=== PATIENT | male | born 1990 | race Caucasian/White ===

== ENCOUNTER 2022-09-22 11:14 | Emergency (ER) | payer MEDICAID ==
[~2022-09-22] VITALS: Ht 180.3 cm; Wt 136.1 kg
--- NOTE | 2022-09-22 11:45 | NUR ---
Placed in room 6 . Placed on teletypesetter monitor, blood pressure machine and pulse oximeter. To gown for exam. Side rails up. Report given to
[2022-09-22 11:46] VITALS: BP_SYST 140
--- NOTE | 2022-09-22 11:46 | NUR ---
ER at bedside examining patient.
--- NOTE | 2022-09-22 11:50 | NUR ---
PT BIB SELF AWAKE AND ALERT AOX4, NO SOB OR DISTRESS. PT C/O A CHIP PLACED IN HIS HEAD BY THE [employer]OST[employer]. PT STATES THE CHIPS MAkES HIM DO STUFF LIKE EJACULAT ON HIMSELF. PT DENIES PAIN. PT STATES THE CHIP HAS BEEN IN HIS HEAD FOR 5-6 YEARS. PT DENIES SI. PT DENIES VOICES, AND COMMMANDS. PT STATED HE WENT TO HOSPITAL IN THE PAST 2 MONTHS TO REMOVE AND DOCUMENT THE CHIP W/ POLICE.
--- NOTE | 2022-09-22 11:50 | NUR ---
MD DR WALTON AT BEDSIDE
[2022-09-22 12:17] LABS: HEMATOCRIT 47.4 % (36-54); HEMOGLOBIN 16.3 g/dL (14.0-18.0); MEAN CORPUSCULAR HEMOGLOBIN 30 pg (27-31); MEAN CORPUSCULAR HGB CONC 34 % (32-36); MEAN CORPUSCULAR VOLUME 87 fL (79.0-98.0); RED BLOOD CELL COUNT(AUTO) 5.43 MIL/uL (4.2-6.2); WHITE BLOOD COUNT (AUTO) 7.6 K/uL (4.8-10.8)
[2022-09-22 12:18] LABS: BASOPHILS % (AUTO) 0.5 % (0.0-2.0); EOSINOPHILS # (AUTO) 0.3 K/uL (0.0-0.4); EOSINOPHILS % (AUTO) 4.1 % (0.0-4.0); ERYTHROCYTE SEDIMENTATION RATE 5 MM/HR (0-15); LYMPHOCYTES # (AUTO) 1.5 K/uL (1.0-5.5); LYMPHOCYTES % (AUTO) 20.2 % (20.5-51.5); MONOCYTES # (AUTO) 0.5 K/uL (0.0-1.0); NEUTROPHILS # (AUTO) 5.3 K/uL (1.8-7.7); NEUTROPHILS % (AUTO) 69.2 % (40.0-70.0); PLATELET COUNT (AUTO) 282 K/uL (130-430); RED CELL DISTRIBUTION WIDTH 12.6 % (9.0-15.0)
[2022-09-22 12:20] LABS: ANION GAP 7 (5-15); CALCIUM 8.6 mg/dL (8.4-11.0); CHLORIDE 101 mmol/L (98-107); CREATININE 1.11 mg/dL (0.55-1.30); GFR AFRICAN AMERICAN 99 mL/min (>90); GLUCOSE 112 mg/dL (70-99); UREA NITROGEN, BLOOD 9 mg/dL (8-21)
[2022-09-22 12:25] LABS: ALANINE AMINOTRANSFERASE 30 U/L (12-78); ALBUMIN 4.1 g/dL (3.4-4.8); ASPARTATE AMINOTRANSFERASE 21 U/L (10-37); TOTAL BILIRUBIN 0.6 mg/dL (0.0-1.0)
[2022-09-22 12:27] LABS: ALCOHOL, BLOOD < 3 mg/dL (<10); C-REACTIVE PROTEIN QUANT < 0.2 mg/dL (0-0.5)
--- NOTE | 2022-09-22 13:00 | NUR ---
PT ON PHONE WITH POORNIMA PERRIN ON TELEMED IPAD.
--- NOTE | 2022-09-22 13:10 | NUR ---
POORNIMA PERRIN RECOMMEDED PT BE PLACED ON 5150 HOLD
--- NOTE | 2022-09-22 15:59 | NUR ---
[employer]I [employer]UAL TICKET CHECKER INFORMED OF 5150 STATUS AND PLAN OF CARE.
[2022-09-22 16:40] LABS: BARBITURATE, URINE NEGATIVE (NEG <=200); BENZODIAZEPINE, URINE NEGATIVE (NEG <=150); CANNABINOID, URINE NEGATIVE (NEG <=50); COCAINE, URINE NEGATIVE (NEG <=150); METHAMPHETAMINES SCREEN,URINE NEGATIVE (NEG <=500); OPIATE, URINE NEGATIVE (NEG <=100); PHENCYCLIDINE SCREEN,URINE NEGATIVE (NEG <=25); UR TRICYCLIC ANTIDEPRESSANTS NEGATIVE (NEG <=300); URINE AMPHETAMINE NEGATIVE (NEG <=500); URINE METHADONE NEGATIVE (NEG <=200); URINE OXYCODONE SCREEN NEGATIVE (NEG <=100); URINE PROPOXYPHENE SCREEN NEGATIVE (NEG <=300)
[2022-09-22 16:46] LABS: ACETAMINOPHEN < 1 ug/mL (1-30)
[2022-09-22] MEDS ORDERED: ZIPRASIDONE HCL 20 MG CAPSULE (GEODON) PO ONE (18:30)
--- NOTE | 2022-09-22 18:30 | NUR ---
pt put on 5150, pt was wanded by security. pt refused to hand over cig and transmission line engineer until [facility] arrives. pt on observation now
--- NOTE | 2022-09-22 18:45 | NUR ---
SPOKE TO [facility] [employer] TO ASSIST WITH [facility]. PT REFUSES TO GIVE BELONGINGS TO STAFF AND VERBALIZES THAT HE'S LEAVING THE ER BY 11PM BECAUSE HE WANTS TO GO BACK TO HIS FACILITY. DOES NOT INFORM STAFF THE NAME OR NUMBER TO CALL HIS PROGRAM/FACILITY. STATES " I'LL CALL THE CHEMICAL DETECTION EXPERT" I INORMED PT THAT I WILL MAKE THAT CALL TO ASSIST HIM. PRIMARY RN AT BEDSIDE AND SECURITY BY DOOR.
--- NOTE | 2022-09-22 19:57 | NUR ---
PT HAS MONEY AND CREDIT CARDS, [employer] OBTAINED FROM PT. PT HAS SITTER AT BEDSIDE. ON ASSESSMENT PT STATED HE HAS A CHIP IN HIS HEAD AND WANTS IT REMOVED. PT HAS MELLOW TONE OF VOICE, NO AGGRESSION NOTED, NAD, EVEN UNLABORED RR, VSS, PT DENIED ANY PYSCHOTROPIC MEDICATIONS EVEN AFTER MEDICATION EXPLAINATION. PT STATED HE TOLD THE PYSCHOLOGIST HE WILL NOT TAKE PYSCHOTROPIC MEDICATIONS. SITTER AND SI PERCAUTIONS IN PLACE. REPORT WAS GIVEN FROM NICOEL MASON.
[2022-09-22 22:18] VITALS: BP_SYST 134
--- NOTE | 2022-09-23 01:49 | NUR ---
Patient to be transferred to [facility]. Is being transferred due to care. Receiving facility has accepting physician and available space. ER physician has signed transfer form. Patient or responsible libertarian has agreed to transfer and signed form. Patient belongings inventoried and will be sent with patient. Copy of nursing notes, lab reports, EKG, Physicians Orders and X-rays to be sent with patient. Report called to at receiving facility. Receiving physician is . ambulance service has been called for transfer. ETA is .
== END 2022-09-22 22:40 ==
LOC: SED 11:14
DX: Z04.6 Encounter for general psychiatric examination, requested by authority (principal); H93.12 Tinnitus, left ear; Z79.899 Other long term (current) drug therapy
CPT/HCPCS: 99285; 70450; 80307; 80053; 85025; 85651; 86140; 36415; 76376; G0482; J7030; G0480; G0481